=== PATIENT | female | born 1950 | race Caucasian/White ===

== ENCOUNTER → 2016-12-29 | Outpatient (CLI) | payer OTHER | LOC: MMPC 11:11 | PROVIDERS: ATTEND Physician Assistant | DX: M54.5 Low back pain (principal) | CPT/HCPCS: 99214; G0463 ==

== ENCOUNTER → 2016-12-31 | Outpatient (CLI) | payer OTHER | LOC: MMPC 11:11 | PROVIDERS: ATTEND Internal Medicine | DX: S39.012D Strain of muscle, fascia and tendon of lower back, subsequent encounter (principal); M06.9 Rheumatoid arthritis, unspecified | CPT/HCPCS: 99214; G0463 ==

== ENCOUNTER → 2017-01-08 | Outpatient (CLI) | payer OTHER ==
[2017-01-08 12:35] LABS: HEMATOCRIT 39.5 % (37.0-47.0); HEMOGLOBIN 12.8 g/dL (12.0-16.0); MEAN CORPUSCULAR HEMOGLOBIN 31.1 PG (27-31); MEAN CORPUSCULAR HGB CONC 32.4 g/dL (33-37); MEAN CORPUSCULAR VOLUME 96.1 FL (81-99); MEAN PLATELET VOLUME 10.9 FL (7.4-12.2); RED BLOOD COUNT 4.11 10^6/uL (4.20-5.40)
[2017-01-08 12:58] LABS: BAND NEUTROPHILS % 0 % (0-10); BASOPHILS % (MANUAL) 2 % (0-1); EOSINOPHILS % (MANUAL) 6 % (0-8); LYMPHOCYTES % (MANUAL) 19 % (10-50); MONOCYTES % (MANUAL) 7 % (0-12); NEUTROPHILS % (MANUAL) 66 % (50-80); PLATELET MORPHOLOGY COMMENT NORMAL MORPHOLOGY (NORM); RBC MORPHOLOGY COMMENT NORMAL MORPHOLOGY (NORM); WBC MORPHOLOGY COMMENT NORMAL MORPHOLOGY (NORM)
--- NOTE | 2017-01-08 16:46 | DI ---
CT ABDOMEN SCAN WITHOUT IV CONTRAST, 01/08/2017 12:18 PM : Clinical History: Lower abdominal pain. Previous Exam: 03/29/2016. Scans are performed from the lower lung bases through the liver and kidneys without IV contrast. Sagi ttal and coronal reformatted images are generated. Although this patient's BUN and creatinine levels were within normal limits for her age, they have increased significantly from the previous exam and t herefore it was decided by the attending physician and myself not to administer IV contrast. Water wa s used for rectal contrast. The lung bases are clear. The liver is normal. The gallbladder is grossly normal. There is no abnorma lity of the spleen, pancreas, and adrenal glands. Both kidneys are normal in size, shape, position an d contour. There is no right hydronephrosis or hydroureter. The left kidney shows pelviectasis and ca liectasis without hydroureter. 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 No renal or ureteral calculi are present. There are no abnormal retrocrural or periaortic nodes. No ascites is present. READING: Normal CT abdomen scan. Incidental finding of a left low-grade ureteropelvic junction stenosis. This has not changed. CT PELVIS SCAN WITHOUT IV CONTRAST, 01/08/2017 12:18 PM : Clinical History: See above. Previous Exam: 03/29/2016. Scans are performed from the inferior margin of the liver and kidneys to the symphysis pubis without IV contrast. There is no free fluid collection and there is no adenopathy. The appendix is normal. The small bowel and terminal ileum are normal. The ileocecal valve could not be identified with certainty. The colon is well visualized because of the water enema. There is stool in the cecum, but no definite annular lesion is seen. Small polyps could be missed. There is no inflammatory/infiltrative change of the cec al mucosa or of the periserosal fat. The remainder of the colon including the region of the sigmoid c olon is normal. There is a small umbilical hernia through which only mesenteric fat has herniated. Th e patient is status post hysterectomy and bilateral salpingo-oophorectomy. READIN. There is no evidence of an inflammatory process throughout the entire colon. In the cecum, the mu cosa has a normal appearance. Because of stool, polyps certainly could be missed but there is no evid ence of an annular lesion. Although the ileocecal valve could not be visualized, the small bowel and the terminal ileum are normal. 2. The remainder of the study is normal.
== END ==
LOC: CT 12:13
PROVIDERS: ATTEND Surgery
DX: R10.31 Right lower quadrant pain (principal); R19.7 Diarrhea, unspecified
CPT/HCPCS: 36415; 74176; 82565; 84520; 85007; 99213; G0463

== ENCOUNTER → 2017-01-09 | Outpatient (CLI) | payer OTHER | LOC: LAB 18:45 | PROVIDERS: ATTEND Surgery | DX: R19.7 Diarrhea, unspecified (principal) | CPT/HCPCS: 87493 ==

== ENCOUNTER → 2017-01-16 | Outpatient (CLI) | payer OTHER | LOC: MMPC 11:11 | PROVIDERS: ATTEND Internal Medicine | DX: M54.16 Radiculopathy, lumbar region (principal); R10.31 Right lower quadrant pain; M06.9 Rheumatoid arthritis, unspecified; E86.0 Dehydration | CPT/HCPCS: 99214; G0463 ==

== ENCOUNTER → 2017-01-21 | Outpatient (CLI) | payer OTHER ==
[2017-01-21 10:24] LABS: HEMATOCRIT 39.1 % (37.0-47.0); HEMOGLOBIN 12.8 g/dL (12.0-16.0); MEAN CORPUSCULAR HEMOGLOBIN 31.2 PG (27-31); MEAN CORPUSCULAR HGB CONC 32.7 g/dL (33-37); MEAN CORPUSCULAR VOLUME 95.4 FL (81-99); MEAN PLATELET VOLUME 10.6 FL (7.4-12.2); NEUTROPHILS % (AUTO) 54.8 % (50-80)
[2017-01-21 10:25] LABS: BASOPHILS # (AUTO) 0.11 10*3/UL; BASOPHILS % (AUTO) 1.7 % (0-1); EOSINOPHILS # (AUTO) 0.49 10*3/UL; EOSINOPHILS % (AUTO) 7.5 % (0-8); LYMPHOCYTES # (AUTO) 1.59 10*3/uL; MONOCYTES # (AUTO) 0.74 10*3/UL (0.3-0.8); MONOCYTES % (AUTO) 11.4 % (5-15); NEUTROPHILS # (AUTO) 3.57 10*3/UL; PLATELET MORPHOLOGY COMMENT NORMAL MORPHOLOGY (NORM); RBC MORPHOLOGY COMMENT NORMAL MORPHOLOGY (NORM); WBC MORPHOLOGY COMMENT NORMAL MORPHOLOGY (NORM)
[2017-01-21 11:02] LABS: BLOOD UREA NITROGEN 16 mg/dL (7-22); CALCIUM 8.9 mg/dL (8.7-10.7); EST GLOMERULAR FILTRATION > 60 (>60 ml/min/1.73m(2)); LIPASE 80 IU/L (23-300); SERUM ALBUMIN 3.5 g/dL (3.5-4.8)
[2017-01-21 11:16] LABS: ERYTHROCYTE SEDIMENTATION RATE 2 MM/HR (0-20)
== END ==
LOC: LAB 10:01
PROVIDERS: ATTEND Internal Medicine
DX: R10.31 Right lower quadrant pain (principal); M06.9 Rheumatoid arthritis, unspecified; M54.16 Radiculopathy, lumbar region
CPT/HCPCS: 36415; 80053; 82150; 83690; 85025; 85652; 86140

== ENCOUNTER → 2017-01-21 | Outpatient (CLI) | payer OTHER ==
--- NOTE | 2017-01-21 12:53 | DI ---
MRI LUMBAR SPINE W/O CN,01/21/2017 9:02 AM: Clinical History: Lumbar radiculopathy. Previous Exam: 11/29/15 Findings: Multiplanar MR images are obtained through the lumbar spine without contrast. Bony alignment is anato lorenzo. Postsurgical changes are seen consistent with transpedicular fixation of L2/ 3. Visualized portions of the spinal cord are unremarkable although it is not well evaluated due to meta llic blooming artifact. There is mild left hydronephrosis not well evaluated on this exam. There is fluid signal noted in the paraspinal musculature of the upper lumbar spine. There was soft t issue signal and enhancement seen in this area on the prior exam as well. The kidneys and adrenals are unremarkable. Individual intervertebral disc spaces: T12/L1: There is disc desiccation and a broad-based disc bulge with some facet and ligamentum flavum hypertrophy contributing to mild bilateral neural foraminal narrowing. At L1/2: There is disc desiccation and a broad-based disc bulge with some facet and ligamentum flavum hypertrophy contributing to mild central canal stenosis with moderate right and moderate to severe l eft neural foraminal narrowing. L2/3: Postsurgical changes are noted consistent with transpedicular fixation at this level. There is also intervertebral fusion. There is some irregular signal involving the lamina/pedicle of this level . This contributes to moderate right and severe left neural foraminal narrowing. L3/4: There is transpedicular fixation at this level as well with some facet and ligamentum flavum hy pertrophy and a broad-based left central through far lateral disc bulge contributing to moderate to s evere left and moderate right neuroforaminal narrowing. L4/5: There is disc desiccation, annular fissuring and a broad-based disc bulge at this level contrib uting to mild central canal stenosis and severe right and moderate left neuroforaminal narrowing. L5/S1: There is disc desiccation and a broad-based disc bulge with facet and ligamentum flavum hypert rophy contributing to severe bilateral lateral recess stenosis. Impression: 1. Fluid density within the subcutaneous fat and extending into the left pedicle. An periventricular soft tissues. This is worrisome for a persisting edema. Cannot rule out the possibility of a left ped icle osteomyelitis. CT may be helpful for further evaluation as this pedicle is not well evaluated du e to metallic blooming artifact. It may also be helpful to attempt some fluid aspiration for further evaluation. This could simply rep resent postsurgical aseptic seroma. 2. Multilevel neural foraminal stenosis as above.
== END ==
LOC: MRI 08:55
PROVIDERS: ATTEND Internal Medicine
DX: M54.16 Radiculopathy, lumbar region (principal); M51.15 Intervertebral disc disorders with radiculopathy, thoracolumbar region; M51.17 Intervertebral disc disorders with radiculopathy, lumbosacral region
CPT/HCPCS: 72148

== ENCOUNTER → 2017-02-21 | Outpatient (CLI) | payer OTHER ==
--- NOTE | 2017-02-21 10:48 | DI ---
AIR CONTRAST BARIUM ENEMA, 02/21/2017 9:05 AM : Clinical History: Lower abdominal pain. Previous Exam: None at this facility. A "time out" session was performed to verify the patient's name and date of prior to initiatin g this procedure. The clinical informatics physician film is normal. Barium and air are advanced from the rectum to the cecum with visualization of ileocecal valve, the cecal tip, and the appendix. There are no polypoid or lupe lar lesions. There is no colitis type of change in the mucosa. The terminal ileum is normal. There i s redundancy of the ascending and descending colons. Reading: Normal air contrast barium enema exam. The appendix is normal.
== END ==
LOC: RAD 09:02
PROVIDERS: ATTEND Surgery
DX: R10.30 Lower abdominal pain, unspecified (principal)
CPT/HCPCS: 74280